=== PATIENT | female | born 1975 | race Caucasian/White ===

== ENCOUNTER 2022-06-16 08:00 | Outpatient (CLI) | payer OTHER ==
--- NOTE | 2022-06-16 15:15 | XRAY Report ---
PROCEDURE: Chest 2 View X-Ray INDICATIONS: CHEST PAIN WITH BREATHING TECHNIQUE: 2 view(s) of the chest. COMPARISON: None. FINDINGS: Surgical changes and devices: None. Lungs and pleura: No pleural effusions or pneumothorax. Lungs are clear. Mediastinum: Mediastinal contours are normal. Heart size is normal. Bones and chest wall: No suspicious bony abnormalities. Soft tissues appear unremarkable. IMPRESSION: No acute cardiopulmonary pathology. Reviewed by: Jose Gold MD on 06/16/2022 3:14 PM PDT Approved by: Jose Gold MD on 06/16/2022 3:14 PM PDT Station ID: [id number]
== END 2022-06-16 08:01 | disposition home or self-care (01) ==
LOC: DI.S 08:00
PROVIDERS: ATTEND Physician Assistant Medical
DX: R07.1 Chest pain on breathing (principal); R10.9 Unspecified abdominal pain; R05.9 Cough, unspecified

== ENCOUNTER 2022-11-03 10:03 | Outpatient (CLI) | payer BC ==
[2022-11-03 15:40] LABS: HCT - HEMATOCRIT 41.8 % (37.0-47.0); HGB - HEMOGLOBIN 13.6 g/dL (12.0-16.0); MEAN CORPUSCULAR HEMOGLOBIN 30.8 pg (27.0-31.0); MEAN CORPUSCULAR HGB CONC 32.5 g/dL (32.0-36.0); MEAN CORPUSCULAR VOLUME 94.6 fL (81.0-99.0); MEAN PLATELET VOLUME 11.4 fL (7.9-10.8); RED BLOOD COUNT 4.42 10^6/uL (4.20-5.40); RED CELL DISTRIBUTION WIDTH 12.3 % (12.0-15.0); WHITE BLOOD COUNT 6.1 x10^3/uL (4.8-10.8)
[2022-11-03 16:07] LABS: ALBUMIN/GLOBULIN RATIO 1.5 (1.0-2.2); BILIRUBIN,TOTAL 0.7 mg/dL (0.2-1.0); CALCIUM 8.8 mg/dL (8.5-10.3); CREATININE 0.6 mg/dL (0.4-1.0); CRP HIGH SENSITIVITY 3.4 mg/L; POTASSIUM 4.1 mmol/L (3.5-5.0); TOTAL PROTEIN 6.7 g/dL (6.7-8.2)
[2022-11-03 16:18] LABS: THYROID STIMULATING HORMONE 1.36 uIU/mL (0.34-5.60)
[2022-11-04 20:08] LABS: T-TRANSGLUTAMINASE (TTG) IGA <2 U/mL (0-3); T-TRANSGLUTAMINASE (TTG) IGG <2 U/mL (0-5)
== END 2022-11-03 10:04 | disposition home or self-care (01) ==
LOC: LAB.S 10:03
PROVIDERS: ATTEND Otolaryngology Plastic Surgery within the Head & Neck
DX: R10.32 Left lower quadrant pain (principal); R10.11 Right upper quadrant pain; R19.5 Other fecal abnormalities
CPT/HCPCS: 36415; 80053; 82784; 83516; 83690; 84443; 85027; 86141

== ENCOUNTER 2023-06-08 10:12 | Outpatient (CLI) | payer BC ==
[2023-06-08 15:15] LABS: BASOPHILS # (AUTO) 0.1 10^3/uL (0.0-0.1); BASOPHILS % (AUTO) 0.8 %; EOSINOPHILS # (AUTO) 0.2 10^3/uL (0.0-0.7); EOSINOPHILS % (AUTO) 2.4 %; HCT - HEMATOCRIT 41.5 % (37.0-47.0); HGB - HEMOGLOBIN 13.6 g/dL (12.0-16.0); LYMPHOCYTES # (AUTO) 1.9 10^3/uL (1.5-3.5); LYMPHOCYTES % (AUTO) 30.1 %; MEAN CORPUSCULAR HEMOGLOBIN 30.6 pg (27.0-31.0); MEAN CORPUSCULAR HGB CONC 32.8 g/dL (32.0-36.0); MEAN CORPUSCULAR VOLUME 93.5 fL (81.0-99.0); MEAN PLATELET VOLUME 11.1 fL (7.9-10.8); MONOCYTES # (AUTO) 0.5 10^3/uL (0.0-1.0); MONOCYTES % (AUTO) 7.8 %; NEUTROPHILS # (AUTO) 3.7 10^3/uL (1.5-6.6); NEUTROPHILS % (AUTO) 58.4 %; PLT - PLATELET COUNT 317 10^3/uL (130-450); RED BLOOD COUNT 4.44 10^6/uL (4.20-5.40); RED CELL DISTRIBUTION WIDTH 11.9 % (12.0-15.0); WHITE BLOOD COUNT 6.3 x10^3/uL (4.8-10.8)
[2023-06-08 15:50] LABS: ALBUMIN 4.3 g/dL (3.2-5.5); ALBUMIN/GLOBULIN RATIO 2.3 (1.0-2.2); ALKALINE PHOSPHATASE 46 IU/L (42-121); ALT ALANINE AMINOTRANSFERASE 23 IU/L (10-60); AST ASPARTATE AMINOTRANSFERASE 21 IU/L (10-42); BILIRUBIN,TOTAL 0.5 mg/dL (0.2-1.0); BUN - BLOOD UREA NITROGEN 13 mg/dL (6-20); CALCIUM 9.4 mg/dL (8.5-10.3); CARBON DIOXIDE - CO2 28 mmol/L (21-32); CHLORIDE 104 mmol/L (101-111); CHOL/HDL RATIO 4.5 (<4.4); CHOLESTEROL 234 mg/dL; CREATININE 0.6 mg/dL (0.6-1.3); GFR - MDRD 107 (>89); GLUCOSE 116 mg/dL (74-104); HDL CHOLESTEROL 52 mg/dL; LDL CHOLESTEROL,CALCULATED 134 mg/dL; LDL/HDL RATIO 2.6 (<4.4); LIPASE 65 U/L (11-82); MAGNESIUM 1.6 mg/dL (1.7-2.3); POTASSIUM 4.3 mmol/L (3.5-4.5); SODIUM 138 mmol/L (135-145); TOTAL PROTEIN 6.2 g/dL (6.4-8.9); TRIGLYCERIDES 238 mg/dL (48-352); VLDL CHOLESTEROL 48 mg/dL
[2023-06-08 16:05] LABS: THYROID STIMULATING HORMONE 1.85 uIU/mL (0.34-5.60)
[2023-06-08 21:03] LABS: ESTIMATED AVERAGE GLUCOSE 114 mg/dL (70-100); HEMOGLOBIN A1c% 5.6 % (4.27-6.07)
== END 2023-06-08 10:13 | disposition home or self-care (01) ==
LOC: LAB.S 10:12
PROVIDERS: ATTEND Internal Medicine
DX: Z00.00 Encounter for general adult medical examination without abnormal findings (principal)
CPT/HCPCS: 36415; 80053; 80061; 82306; 82607; 83036; 83690; 83721; 83735; 84443; 85025

== ENCOUNTER 2023-07-01 14:44 | Outpatient (CLI) | payer BC ==
--- NOTE | 2023-07-11 11:54 | Mammography Report ---
BILATERAL DIGITAL SCREENING MAMMOGRAM 3D/2D: 07/01/2023 CLINICAL: Routine screening. Additional films were requested but not obtained. There are scattered areas of fibroglandular density in both breasts (category b / 25%-50% glandular t issue). No significant masses, calcifications, or other findings are seen in either breast. IMPRESSION: NEGATIVE There is no mammographic evidence of malignancy. A 1 year screening mammogram is recommended. Based on the Tyrer Cuzick model (a risk assessment model) the patients lifetime risk is 9.8% and her 10 year risk is 2.1%. According to the ACR, ACS, and NCCN guidelines, an annual breast MRI exam chip g with mammogram is recommended if the patients lifetime risk is 20% or greater. This exam was interpreted at Station ID: [id number]. NOTE: For mammograms, a report in lay terms will be sent to the patient. Approximately 15% of breast malignancies will not be visualized mammographically. In the management of a palpable breast mass, a negative mammogram must not discourage biopsy of a clinically suspicious lesion. Electronically Signed By: Scooby [email or web address]:07/08/2023 16:35:21 letter sent: No_Letter ACR BI-RADS Category 1: Negative 3341F PARENCHYMAL PATTERN: (A) - The breast(s) demonstrate(s) scattered fibroglandular densities. BI-RADS CATEGORY: (1) - 1 Mammogram [id number] 1 year screening LATERALITY: (B)
== END 2023-07-01 14:45 | disposition home or self-care (01) ==
LOC: DI 14:44
DX: Z12.31 Encounter for screening mammogram for malignant neoplasm of breast (principal); R92.323 Mammographic fibroglandular density, bilateral breasts

== ENCOUNTER 2023-09-29 14:41 | Outpatient (CLI) | payer BC ==
--- NOTE | 2023-09-29 16:28 | Ultrasound Report ---
PROCEDURE: Pelvic w/Transvaginal INDICATIONS: LLQ ABD PAIN TECHNIQUE: Real-time scanning was performed of the pelvic organs, with image documentation. Additional endovagi nal scanning was necessary due to incomplete visualization of the adnexal and endometrial structures by transabdominal scanning. COMPARISON: None. FINDINGS: Uterus: Uterus is anteverted and normal in size at 6.7 x 3.0 x 5.7 cm. The myometrium is homogeneou s. The endometrium measures 5.5 mm in combined thickness. Intramural fibroid with a submucosal inte rface, measuring 4.6 x 2.8 x 4.2 cm. Ovaries: The right ovary measures 3.6 x 2.3 x 2.1 cm, with a calculated ovarian volume of 9.1 cc. T he left ovary measures 1.8 x 1.1 x 1.0 cm, with a calculated ovarian volume of 1.0 cc. The ovaries h ave a normal sonographic appearance. Less than 12 follicles can be seen in each ovary. No adnexal m asses are seen. No cystic lesions measuring greater than 3 cm. Follicle with thin internal septation in the right ovary measuring 1.8 cm. Other: No pathologic free abdominal or pelvic fluid. IMPRESSION: Intramural fibroid with a small submucosal interface measuring 4.6 x 2.8 x 4.2 cm. Follicle with thin internal septation in the right ovary measuring 1.8 cm. [address] on menopausal st atus, this would be O-RADS 2. Recommend follow-up in one year. Reviewed by: Marquez Moran MD on 09/29/2023 4:27 PM PST Approved by: Marquez Moran MD on 09/29/2023 4:27 PM PST Station ID: [id number]
== END 2023-09-29 14:42 | disposition home or self-care (01) ==
LOC: DI 14:41
PROVIDERS: ATTEND Obstetrics & Gynecology
DX: R10.32 Left lower quadrant pain (principal); D25.1 Intramural leiomyoma of uterus; R93.89 Abnormal findings on diagnostic imaging of other specified body structures

== ENCOUNTER 2024-03-02 08:00 | Outpatient (CLI) | payer BC ==
[2024-03-02 19:02] LABS: INFLUENZA A- RESP PCR PANEL NOT DETECTED; INFLUENZA B - RESP PCR PANEL NOT DETECTED; RSV- RESP PCR PANEL NOT DETECTED; SARS-CoV-2 -RESP PCR PANEL NOT DETECTED
== END 2024-03-02 23:59 | disposition home or self-care (01) ==
LOC: LAB 08:00
PROVIDERS: ATTEND Physician Assistant
DX: J02.9 Acute pharyngitis, unspecified (principal)
CPT/HCPCS: 87637